=== PATIENT | male | born 1965 | race African-American/Black ===

== ENCOUNTER 2017-11-15 05:41 | Day surgery (SDC) | payer OTHER ==
[2017-11-15] VITALS (14 sets, daily range): BP systolic 138–158; BP diastolic 86–109
[~2017-11-15] VITALS: Ht 182.9 cm; Wt 86.2 kg
[~2017-11-15 05:41] MED LIST: GLIPIZIDE10 MG PO; LISINOPRIL40 MG ORAL; METFORMIN HCL500 M3 ORAL; NORVASC10 MG ORAL; ZOCOR10 MG ORAL
[2017-11-15] MEDS ORDERED: Dexamethasone 4mg/ml vial ONE ×2 (06:21→08:12)
[2017-11-15] MEDS ORDERED: EPINEPHrine 1mg/1ml Amp ONE (06:21)
[2017-11-15] MEDS ORDERED: Ropivacaine 5mg/ml Vial 30ml INJ ONE ×2 (06:21→08:12)
[2017-11-15] MEDS ORDERED: Propofol 200mg/20ml IV ONE ×4 (06:30→08:23)
[2017-11-15] MEDS ORDERED: LR 1000ml ONE (07:00)
[2017-11-15] MEDS ORDERED: Ketorolac 30mg Inj ONE (07:00)
[2017-11-15] MEDS ORDERED: fentaNYL 100 mcg/2 mL IV ONE (07:00)
[2017-11-15] MEDS ORDERED: Sterile Water Irrig 1000ml IRRIG ONE (07:00)
[2017-11-15] MEDS ORDERED: NS Irrig 1000ml ONE (07:00)
[2017-11-15] MEDS ORDERED: Midazolam 2mg/2ml Inj ONE (07:00)
[2017-11-15] MEDS ORDERED: Acetic Acid 3% Solution 15ml TOPIC ONE (07:00)
--- NOTE | 2017-11-15 07:05 | Pre-Procedure Note/Attestation ---
Pre-Procedure Note/Attestation Complete Prior to Procedure Planned Procedure: not applicable Procedure Narrative: Procedure for prolapse and hemorrhoids Indications for Procedure Pre-Operative Diagnosis: hemorrhoids Attestation I attest that I discussed the nature of the procedure; its benefits; risks and complications; and alternatives (and the risks and benefits of such alternatives ), prior to the procedure, with the patient (or the patient's legal associate financial representative). I attest that, if there was a reasonable possibility of needing a blood transfusion, the patient (or the patient's legal associate financial representative) was given the [facility] standardized written summary, pursuant to the [place] Blood Safety Act ([place] Health and Safety Code # 1645, as amended). I attest that I re-evaluated the patient just prior to the surgery and that there has been no change in the patient's H&P, except as documented below: YEYO BECERRA Nov 15, 2017 07:05
[2017-11-15] MEDS ORDERED: cefOXitin 2gm Inj ONE (07:07)
[2017-11-15] MEDS ORDERED: LR 1000ml 1,000 ML IVLG SCH (07:38)
--- NOTE | 2017-11-15 07:38 | Anethesia Preoperative Eval ---
Anesthesia Pre-op PMH/ROS General Date of Evaluation: Nov 15, 2017 Time of Evaluation: 06:55 Anesthesiologist: Alethea ASA Score: ASA 3 Mallampati Score Class I : Soft palate, uvula, fauces, pillars visible Class II: Soft palate, uvula, fauces visible Class III: Soft palate, base of uvula visible Class IV: Only hard plate visible Mallampati Classification: Class II Surgeon: Thomas Diagnosis: Hemorrhoids Surgical Procedure: Hemorrhoidectomy Anesthesia History: none Family History: no anesthesia problems Allergies: Coded Allergies: No Known Allergies (Unverified , 11/14/17) Medications: see eMAR Past Medical History Cardiovascular: Reports: HTN, Denies: CAD, NH, valve dz, arrhythmia, other Pulmonary: Denies: asthma, COPD, RODNEY, other Gastrointestinal/Genitourinary: Reports: GERD, Denies: CRI, ESRD, other Neurologic/Psychiatric: Denies: dementia, CVA, depression/anxiety, TIA, other Endocrine: Reports: DM - poorly controled, Denies: hypothyroidism, steroids, other HEENT: Denies: cataract (L), cataract (R), glaucoma, [place] (L), [place] (R), other Hematology/Immune: Denies: anemia, DVT, bleeding disorder, other Musculoskeletal/Integumentary: Denies: OA, RA, DJD, DDD, edema, other PMH Narrative: as above PSxH Narrative: Dental Sx Anesthesia Pre-op Phys. Exam Physician Exam Last Vital Signs Date Time Temp Pulse Resp B/P (MAP) Pulse Ox O2 Delivery O2 Flow Rate FiO2 11/15/17 06:38 98.1 81 20 147/92 97 Room Air 98.1 Constitutional: NAD Neurologic: CN 2-12 intact Cardiovascular: RRR Respiratory: CTA Gastrointestinal: S/NT/ND Airway Exam Mallampati Score: Class II MO: full Neck: flexible ROM: full Teeth: intact Dentures: no upper, no lower Anesthesia Pre-op A/P Labs see chart Accucheck BS 159 at admission Studies Pre-op Studies: EKG - NSR Risk Assessment & Plan Assessment: ASA 3 Plan: MAC Status Change Before Surgery: No Pre-Antibiotics Drug: Cefoxitin 2 gr. Given Within 1 Hr of Incision: Yes Time Given: 08:29 ALBA POLLOCK M.D. Feb 28, 2018 07:38
[2017-11-15] MEDS ORDERED: Ketorolac 30mg Inj IV PRN (07:45)
[2017-11-15] MEDS ORDERED: Hydromorphone 0.5mg/0.5ml inj IVP PRN (07:45)
[2017-11-15] MEDS ORDERED: DiphenhydrAMINE 50mg/ml Inj IVP PRN (07:45)
[2017-11-15] MEDS ORDERED: Meperidine 50mg/ml Inj(FOR RIGORS ONLY) IV PRN (07:45)
[2017-11-15] MEDS ORDERED: Midazolam 2mg/2ml Inj IVP PRN (07:45)
[2017-11-15] MEDS ORDERED: Surgicel 4in x 8in TOPIC ONE (08:26)
--- NOTE | 2017-11-15 08:54 | Brief Operative Note ---
Immediate Post Operative Note Operative Note Pre-op Diagnosis: hemorrhoids Procedure: Procedure for prolapse and hemorrhoids Post-op Diagnosis: same as pre-op Findings: consistent w/pre-op dx studies Surgeon: Vera Becerra MD Anesthesiologist: Stefano Navarrete MD Anesthesia: moderate sedation Specimen: yes Complications: none Condition: stable Fluids: see anesthesia record Estimated Blood Loss: volume - 30 cc Drains: none Implant(s) used?: No VERA BECERRA Nov 15, 2017 08:54
--- NOTE | 2017-11-15 09:47 | Immediate Post-Op Evaluation ---
Immediate Post-Op Evalulation Immediate Post-Op Evalulation Procedure: Hemorrhoidectomy Date of Evaluation: Nov 15, 2017 Time of Evaluation: 08:48 IV Fluids: 1300 Blood Products: none Estimated Blood Loss: 250 Urinary Output: none Blood Pressure Systolic: 148 Blood Pressure Diastolic: 87 Pulse Rate: 86 Respiratory Rate: 22 O2 Sat by Pulse Oximetry: 99 Temperature (Fahrenheit): 97.8 Pain Score (1-10): 2 Nausea: No Vomiting: No Complications none Patient Status: awake, patent, none Hydration Status: adequate Drug: cefoxitin 2grALBA FREGOSO M.D. Nov 15, 2017 09:47
--- NOTE | 2017-11-15 10:45 | 48 Hour Post Anesthesia Eval ---
Post Anesthesia Evaluation Procedure: Hemorrhoidectomy Date of Evaluation: Nov 15, 2017 Time of Evaluation: 10:44 Blood Pressure Systolic: 138 0: 86 Pulse Rate: 84 Respiratory Rate: 20 Temperature (Fahrenheit): 97.8 O2 Sat by Pulse Oximetry: 99 Airway: patent Nausea: No Vomiting: No Pain Intensity: 3 Hydration Status: adequate Cardiopulmonary Status: stable Mental Status/LOC: patient returned to baseline Follow-up Care/Observations: n/a Post-Anesthesia Complications: none Follow-up care needed: ready to discharge ALBA POLLOCK M.D. Nov 15, 2017 10:45
--- NOTE | 2017-11-15 15:31 | Operative Note - Dictated ---
DATE OF OPERATION: 11/15/2017 PREOPERATIVE DIAGNOSIS: Large bleeding internal hemorrhoids. POSTOPERATIVE DIAGNOSIS: Large bleeding internal hemorrhoids. PROCEDURE: Procedure for prolapse and hemorrhoids (PPH). SURGEON: Vera Guzman M.D. ANESTHESIOLOGIST: Stefano Claire M.D. ANESTHESIA: Propofol sedation with local anesthetic. INDICATION FOR PROCEDURE: The patient is a 52-year-old male, who initially came to see me on 08/28/2017, sent by his heel emery buffer, Dr. Bj Laureano, for colorectal surgical evaluation for large bleeding internal hemorrhoids. The patient reports that he has had some occasional bleeding, which could be excessive at times. The patient was found on physical exam to have a very large prolapsing hemorrhoids and determined at this time to proceed with the surgical excision. DESCRIPTION OF PROCEDURE: Upon consent of the patient, the patient brought to the operating room and placed in a prone rebekah-knife position on the operating table. Once adequate sedation was established with propofol drip, the patient's buttocks were prepped and draped in usual surgical fashion. A 40 mL of 0.5% ropivacaine with epinephrine mixed with 6 mg of dexamethasone was used as a perianal and pudendal block. A Hill-Layton retractor was placed in the anal canal, noted to be very obviously very large prolapsing circumferential internal hemorrhoids with external component. The dilator with PPH stapler was inserted and removed. The dilator with a clear obturator was then inserted, and the dilator was removed while the clear obturator was held firmly to the buttocks and placed. A pursestring anoscope was inserted and pursestring was created approximately 2 cm proximal to the dentate line using a 2-0 Vicryl suture. The suture was then tied around the anvil of the Ethicon 33 mm hemorrhoidal PPH stapler and attention was applied to the suture while gradually closing the stapler. The stapler was then fired, opened, and withdrawn and there was noted to be incomplete doughnut. Since the patient's hemorrhoids are so large, a second firing was decided. Another pursestring was created approximately at the same staple line and tied around the anvil of another PPH stapler. The stapler was then fired likewise as in previous manner and additional hemorrhoidal tissue was removed. There was a residual area of prolapse on the left posterior region, which was excised in elliptical fashion and also sent off as a specimen. The mucosal defect was closed with a running 2-0 Vicryl suture. The area in the right posterior region was also excised in likewise manner and closed in likewise manner with running locking 2-0 Vicryl suture as well. Bleeding points along the staple line were ligated with a [id number] 2-0 Vicryl suture. The patient was noted to have a very large, vascular, bleeding internal hemorrhoids. The anal canal was then irrigated and hemostasis confirmed. Due to his large hemorrhoids, a sheet of Surgicel was inserted into the anal canal to help with hemostasis. There was no obvious bleeding after the procedure. An ice pack was used for postoperative swelling. Sponge, needle, and instrument counts were correct at the end of the case. The patient was awakened from anesthesia and brought to postanesthesia recovery room in stable condition. ESTIMATED BLOOD LOSS: 30 mL. DRAINS: None. SPECIMEN: Hemorrhoids. COMPLICATIONS: None. Vera Guzman M.D. DR: GEOFF JOB#: [id number] CC: Vera Guzman M.D.; Fax#: [phone] Jeronimo Rollins MD Richard Corlin, M.D.
== END 2017-11-15 10:40 | disposition home or self-care (01) ==
LOC: SUR 05:41
DX: K64.8 Other hemorrhoids (principal); I10 Essential (primary) hypertension; E11.9 Type 2 diabetes mellitus without complications; K21.9 Gastro-esophageal reflux disease without esophagitis
CPT/HCPCS: 46947; 82962; J0171; J0690; J0694; J1100; J1885; J2175; J2250; J2704; J2795; J3010; J7120; 94003; 94150